=== PATIENT | female | born 1975 | race Caucasian/White ===

== ENCOUNTER 2017-03-10 11:02 | Emergency (ER) | payer SELFPAY ==
[2017-03-10] MEDS ORDERED: Ketorolac Tromethamine 60 MG/2 ML VIAL ONE (11:23)
[2017-03-10] MEDS ORDERED: HYDROcodone/Acetaminophen 5/325 mg Tablet ONE (11:23)
--- NOTE | 2017-03-10 12:21 | RAD ---
LEFT SHOULDER 3 VIEWS: Date: 03/10/17 HISTORY: Pain. Patient fell 1 hour ago. COMPARISON: None. FINDINGS: There appear to be chronic changes involving the mid to distal left clavicle. Glenohumeral joint spa ce is preserved. No fracture or dislocation. Visualized left ribs are unremarkable. IMPRESSION: No fracture or dislocation. POS: [facility]
--- NOTE | 2017-03-10 12:24 | RAD ---
4 VIEWS LEFT ELBOW: Date: 03/10/17 HISTORY: Injury after a fall 1 hour ago. COMPARISON: 01/03/17. FINDINGS: There is no fracture, dislocation, or other osseous abnormality seen involving the left elbow. There has been no interval change from the prior exam. IMPRESSION: No acute osseous abnormality visualized. POS: [facility]
== END 2017-03-10 12:30 | disposition home or self-care (01) ==
LOC: MADERS 11:02
DX: S40.012A Contusion of left shoulder, initial encounter (principal); S50.02XA Contusion of left elbow, initial encounter; K21.9 Gastro-esophageal reflux disease without esophagitis; Z87.442 Personal history of urinary calculi; W18.30XA Fall on same level, unspecified, initial encounter
CPT/HCPCS: 96372; J1885

== ENCOUNTER 2017-03-21 21:27 | Emergency (ER) | payer SELFPAY ==
--- NOTE | 2017-03-21 22:10 | RAD ---
EXAM: RIGHT ANKLE THREE VIEWS 03/21/17 HISTORY: Trauma. Pain. FINDINGS: There is lateral soft tissue swelling. Chronic changes to the lateral malleolus are noted. Possible old avulsive injury at the level of the medial malleolus. Acute fracture is not appreciated. There a re mild degenerative changes. No acute fractures. IMPRESSION: 1. Soft tissue swelling. 2. Chronic changes. No acute fracture. POS: [facility]
--- NOTE | 2017-03-21 22:51 | RAD ---
EXAM: RIGHT TIBIA AND FIBULA TWO VIEWS 03/21/17 HISTORY: Trauma. Pain. COMPARISON: None. FINDINGS/IMPRESSION: No acute fracture. No cortical irregularity or periosteal reaction. Chronic changes of the lateral m alleolus are noted. POS: [facility]
[2017-03-21] MEDS ORDERED: Naproxen 500 MG TAB ONE (23:04)
[2017-03-21] MEDS ORDERED: HYDROcodone/Acetaminophen 10/325 mg Tablet ONE (23:04)
== END 2017-03-21 23:28 | disposition home or self-care (01) ==
LOC: MADERS 21:27
DX: S93.401A Sprain of unspecified ligament of right ankle, initial encounter (principal); G43.909 Migraine, unspecified, not intractable, without status migrainosus; K21.9 Gastro-esophageal reflux disease without esophagitis; X50.1XXA Overexertion from prolonged static or awkward postures, initial encounter

== ENCOUNTER 2017-05-23 10:56 | Emergency (ER) | payer SELFPAY ==
[2017-05-23 11:59] LABS: Hemoglobin 10.7 g/dL (12.0-16.0); Mean Corpuscular HGB CONC 30.7 g/dL (32.0-36.0); Mean Corpuscular Hemoglobin 24.4 pg (27.0-31.0); Mean Corpuscular Volume 79.6 fl (81.0-99.0); Mean Platelet Volume 6.1 fL (7.4-10.4); PTT 27.2 SEC (22.9-36.1); Platelet Count 471 thou/uL (130-400); Prothrombin Time 13.6 SEC (12.0-14.7); RBC Distribution Width 16.5 % (11.5-14.5); White Blood Cell (WBC) Count 14.2 thou/uL (4.8-10.8)
[2017-05-23] MEDS ORDERED: Ondansetron ODT 4 MG TAB ONE (12:01)
[2017-05-23 12:06] LABS: ALT (SGPT) 13 U/L (8-55); AST (SGOT) 18 U/L (5-34); Albumin 4.3 g/dL (3.5-5.0); Alkaline Phosphatase 57 U/L (40-150); Anion Gap 14 mmol/L (10-20); BUN (Urea Nitrogen) 10 mg/dL (7.0-18.7); Bilirubin, Total 0.4 mg/dL (0.2-1.2); Calc. Creatinine Clearance 0 mL/min (70-130); Calcium 9.1 mg/dL (7.8-10.44); Carbon Dioxide 22 mmol/L (22-29); Chloride 107 mmol/L (98-107); Estimated GFR-MDRD 85; Globulin 4.2 g/dL (2.4-3.5); Glucose 103 mg/dL (70-105); Potassium 3.2 mmol/L (3.5-5.1); Protein, Total 8.5 g/dL (6.0-8.3); Sodium 140 mmol/L (136-145)
[2017-05-23 12:16] LABS: #Basophils 0.3 thou/uL (0.0-0.2); #Eosinphils 0.4 thou/uL (0.0-0.7); #Lymphocytes 1.9 thou/uL (1.20-3.40); #Monocytes 0.9 thou/uL (0.11-0.59); #Neutrophils 10.8 thou/uL (1.40-6.50); %Basophils 1.9 % (0.0-1.0); %Eosinophils 2.6 % (0.0-10.0); %Lymphocytes 13.1 % (21.0-51.0); %Monocytes 6.2 % (0.0-10.0); %Neutrophils 76.3 % (42.0-75.0); MDiff Complete? YES; Microcytosis SLIGHT = 6-15 cells (100X) (0-5/hpf); PLT Morphology Comment Appears Increased
[2017-05-23] MEDS ORDERED: cefTRIAXone\\ROCEPHIN 1 GM VIAL ONE (12:30)
[2017-05-23] MEDS ORDERED: Lidocaine 1% 20 ML MDV ONE (12:30)
[2017-05-23] MEDS ORDERED: Acetaminophen 500 MG TAB ONE (13:02)
== END 2017-05-23 13:10 | disposition home or self-care (01) ==
LOC: MADERS 10:56
DX: S40.862A Insect bite (nonvenomous) of left upper arm, initial encounter (principal); S40.861A Insect bite (nonvenomous) of right upper arm, initial encounter; S80.862A Insect bite (nonvenomous), left lower leg, initial encounter; S80.861A Insect bite (nonvenomous), right lower leg, initial encounter; G43.909 Migraine, unspecified, not intractable, without status migrainosus; W57.XXXA Bitten or stung by nonvenomous insect and other nonvenomous arthropods, initial encounter
CPT/HCPCS: 36415; 80053; 85025; 85610; 85730; 86140; 90471; J0696; J2001; Q0162

== ENCOUNTER 2017-08-05 21:20 | Emergency (ER) | payer SELFPAY ==
[2017-08-05] MEDS ORDERED: Lidocaine 2% w/Epinephrine 1:200K 20 ML VIAL ONE (22:00)
[2017-08-05] MEDS ORDERED: Naproxen 500 MG TAB ONE (22:44)
[2017-08-05] MEDS ORDERED: HYDROcodone/Acetaminophen 10/325 mg Tablet ONE (22:44)
[2017-08-05] MEDS ORDERED: Triple Antibiotic Oint 1 GM Packet ONE (22:45)
== END 2017-08-05 22:56 | disposition home or self-care (01) ==
LOC: MADERS 21:20
DX: L02.415 Cutaneous abscess of right lower limb (principal); K21.9 Gastro-esophageal reflux disease without esophagitis; Z87.442 Personal history of urinary calculi; Z79.2 Long term (current) use of antibiotics; Z79.891 Long term (current) use of opiate analgesic
CPT/HCPCS: 10060; 87070; 87077; 87186; 87205

== ENCOUNTER 2017-08-07 08:10 | Emergency (ER) | payer SELFPAY ==
[2017-08-07] MEDS ORDERED: HYDROcodone/Acetaminophen 10/325 mg Tablet ONE (08:29)
== END 2017-08-07 09:25 | disposition home or self-care (01) ==
LOC: MADERS 08:10
DX: Z48.817 Encounter for surgical aftercare following surgery on the skin and subcutaneous tissue (principal); K21.9 Gastro-esophageal reflux disease without esophagitis; G43.909 Migraine, unspecified, not intractable, without status migrainosus
CPT/HCPCS: 99282